=== PATIENT | female | born 1930 | race Two or more races ===

== ENCOUNTER 2017-03-02 12:32 | Emergency (ER) | payer OTHER ==
[~2017-03-02] VITALS: Ht 160 cm; Wt 43.5 kg
[~2017-03-02 12:32] MED LIST: ARICEPT5 MG; ARICEPT5 MG PO; CATAFLAM50 MG PO; DICLOFENAC POTA50 MG; DUI500 PO; METOPROLOL SUCC50 MG PO; MYRBETRIQ25 MG; MYRBETRIQ25 MG PO; NORVASC5 MG; NORVASC5 MG PO; PERCOCET 5-3251 EACH PO; TOPROL XL50 M1; TRAMADOL HCL50 MG; XARELTO10 MG PO
== END 2017-03-02 16:24 | disposition home or self-care (01) ==
LOC: ER 12:32
DX: Z48.02 Encounter for removal of sutures (principal)

== ENCOUNTER 2017-05-16 10:48 | Outpatient (CLI) | payer OTHER | END 2017-05-16 10:58 | disposition home or self-care (01) | LOC: LAB 10:48 | DX: I10 Essential (primary) hypertension (principal); E11.9 Type 2 diabetes mellitus without complications; E03.8 Other specified hypothyroidism; E78.2 Mixed hyperlipidemia ==

== ENCOUNTER 2017-05-16 11:28 | Outpatient (CLI) | payer OTHER | END 2017-05-16 11:34 | disposition home or self-care (01) | LOC: RAD 11:28 | DX: M46.47 Discitis, unspecified, lumbosacral region (principal) ==

== ENCOUNTER → 2017-09-05 10:39 | Outpatient (CLI) | payer OTHER | END | disposition home or self-care (01) | LOC: LAB 10:39 | DX: I10 Essential (primary) hypertension (principal); E11.9 Type 2 diabetes mellitus without complications; E03.8 Other specified hypothyroidism; E78.2 Mixed hyperlipidemia ==

== ENCOUNTER 2018-04-05 11:17 | Outpatient (CLI) | payer OTHER | END 2018-04-05 11:26 | disposition home or self-care (01) | LOC: LAB 11:17 | DX: I10 Essential (primary) hypertension (principal); E11.9 Type 2 diabetes mellitus without complications; E03.8 Other specified hypothyroidism; E78.2 Mixed hyperlipidemia ==

== ENCOUNTER 2018-04-07 21:25 | Inpatient (IN) | payer OTHER ==
[~2018-04-07] VITALS: Ht 157.5 cm; Wt 68.0 kg
[2018-04-10] MEDS ORDERED: ULTRACET PO (10:10)
[2018-04-10] MEDS ORDERED: ELIQUIS2.5 MG PO (10:10)
== END 2018-04-10 18:00 | DRG 470 ==
LOC: ER 21:25 → SURG 04-08 08:55
PROVIDERS: ADMIT Orthopaedic Surgery
PROC: 0MTL0ZZ Resection of Right Hip Bursa and Ligament, Open Approach (ICD-10-PCS; 2018-04-08)
PROC: 0SR90J9 Replacement of Right Hip Joint with Synthetic Substitute, Cemented, Open Approach (ICD-10-PCS; principal; 2018-04-08 12:00)
DX: S72.031A Displaced midcervical fracture of right femur, initial encounter for closed fracture (principal); M16.11 Unilateral primary osteoarthritis, right hip; M81.8 Other osteoporosis without current pathological fracture; M70.61 Trochanteric bursitis, right hip; R26.89 Other abnormalities of gait and mobility; M51.27 Other intervertebral disc displacement, lumbosacral region; M96.1 Postlaminectomy syndrome, not elsewhere classified; G30.0 Alzheimer's disease with early onset; F02.80 Dementia in other diseases classified elsewhere, unspecified severity, without behavioral disturbance, psychotic disturbance, mood disturbance, and anxiety; E87.5 Hyperkalemia

== ENCOUNTER 2018-07-04 14:42 | Outpatient (CLI) | payer OTHER ==
[~2018-07-04 14:42] MED LIST changes: +ELIQUIS2.5 MG PO; +ULTRACET PO
== END 2018-07-04 14:48 | disposition home or self-care (01) ==
LOC: RAD 14:42
DX: M19.90 Unspecified osteoarthritis, unspecified site (principal)

== ENCOUNTER 2018-08-29 16:03 | Emergency (ER) | payer OTHER ==
[~2018-08-29] VITALS: Ht 160 cm; Wt 47.6 kg
[2018-08-29] MEDS ORDERED: [UNRECOGNIZED DRUG - OTHER] (16:30)
[2018-08-29] MEDS ORDERED: EDLUAR10 MG (16:33)
[2018-08-29] MEDS ORDERED: MECLIZINE HCL12.5 MG (16:34)
[2018-08-29] MEDS ORDERED: GABAPENTIN100 MG (19:09)
== END 2018-08-29 22:04 | disposition designated cancer center or children's hospital (05) ==
LOC: ER 16:03
DX: I62.00 Nontraumatic subdural hemorrhage, unspecified (principal); R53.83 Other fatigue

== ENCOUNTER → 2018-11-16 | Emergency (ER) | payer OTHER ==
[~2018-11-16] VITALS: Ht 154.9 cm; Wt 43.1 kg
[~2018-11-16] MED LIST changes: +CARVEDILOL12.5 MG; +EDLUAR10 MG; +FOLIC ACID1 MG; +GABAPENTIN100 MG; +HYDRALAZINE HCL25 MG; +MECLIZINE HCL12.5 MG; +NORVASC10 MG; +PEPCID20 MG; +PROBIOTIC1 EAC2; +VASOTEC10 MG; +[UNRECOGNIZED DRUG - OTHER]
== END | disposition expired ==
LOC: ER 13:37
DX: A41.89 Other specified sepsis (principal); R65.21 Severe sepsis with septic shock; L89.154 Pressure ulcer of sacral region, stage 4; L08.89 Other specified local infections of the skin and subcutaneous tissue; B96.4 Proteus (mirabilis) (morganii) as the cause of diseases classified elsewhere; B96.89 Other specified bacterial agents as the cause of diseases classified elsewhere; B96.1 Klebsiella pneumoniae [K. pneumoniae] as the cause of diseases classified elsewhere; B96.29 Other Escherichia coli [E. coli] as the cause of diseases classified elsewhere; G30.8 Other Alzheimer's disease; F02.80 Dementia in other diseases classified elsewhere, unspecified severity, without behavioral disturbance, psychotic disturbance, mood disturbance, and anxiety; Z66 Do not resuscitate